=== PATIENT | female | born 1970 | race Caucasian/White ===

== ENCOUNTER 2020-01-25 08:55 | Day surgery (SDC) | payer OTHER ==
[2020-01-20 14:51] VITALS: BMI 22.6
[2020-01-25] MEDS ORDERED: PROPOFOL 20 ML ONE (10:01)
[2020-01-25 12:34] VITALS: TEMP 97.7
[2020-01-25 12:37] VITALS: BP 100/68; PULSE 55
--- NOTE | 2020-01-27 16:12 | PATH ---
Surgical Pathology Report Patient Name: [facility]. Rec. #: [id number] /Age/Gender: 1970 (Age: 49) / F Account: [id number] Location: [facility] Taken: 01/25/2020 Received: 01/25/2020 Reported: 01/27/2020 Physicians: Ketan Barraza M.D. Specimen(s) Received A: DESCENDING HOT SNARE POLYPECTOMY B: CECUM HOT SNARE POLYPECTMY C: ASCENDING COLON HOT SNARE POLYPECTOMY D: POLYP TRANSVERSE COLON BX E: SIGMOID COLON HOT SNARE POLYPECTOMY F: POLYP RECTUM BX Clinical History Family history of colon cancer Postoperative diagnosis: Colon polyps, hemorrhoids Final Diagnosis A. DESCENDING COLON, POLYP, HOT SNARE POLYPECTOMY: TUBULAR ADENOMA. B. CECUM, POLYP, HOT SNARE POLYPECTOMY: SESSILE SERRATED POLYP. C. ASCENDING COLON, POLYP, HOT SNARE POLYPECTOMY: SESSILE SERRATED POLYP. D. TRANSVERSE COLON, POLYP, BIOPSY: SESSILE SERRATED POLYP. E: SIGMOID COLON, POLYP, HOT SNARE POLYPECTOMY: TUBULAR ADENOMA. F. RECTUM, POLYP, BIOPSY: SESSILE SERRATED POLYP. Electronically Signed Lesa Garcia M.D. Gross Description A. Received in formalin, labeled "hot snare polypectomy descending" is a amato, irregular portion of soft tissue measuring 0.3 cm. in greatest dimension. The specimen is submitted in toto in one cassette. B. Received in formalin, labeled "hot snare polypectomy cecum" are 2 amato, irregular portions of soft tissue measuring 0.5 and 0.9 cm. in greatest dimension. The specimens are submitted in toto in one cassette. C. Received in formalin, labeled "hot snare polypectomy ascending colon" is a amato, polypoid portion of soft tissue measuring 0.8 cm. in greatest dimension. The specimen is submitted in toto in one cassette. D. Received in formalin, labeled "biopsy polyp transverse colon" are 2 amato, irregular portions of soft tissue measuring 0.1 and 0.3 cm. in greatest dimension. The specimens are submitted in toto in one cassette. E. Received in formalin, labeled "hot snare polypectomy sigmoid" is a amato, irregular portion of soft tissue measuring 0.5 cm. in greatest dimension. The specimen is submitted in toto in one cassette. F. Received in formalin, labeled "biopsy polyp rectum" are 2 amato, irregular portions of soft tissue averaging 0.3 cm. in greatest dimension. The specimens are submitted in toto in one cassette. 01/26/2020 [facility]01/26/2020
== END 2020-01-25 11:50 | disposition home or self-care (01) ==
LOC: FASU-ENDO 08:55
PROVIDERS: ATTEND Internal Medicine Gastroenterology
PROC: 0DBN8ZX Excision of Sigmoid Colon, Via Natural or Artificial Opening Endoscopic, Diagnostic (ICD-10-PCS; 2020-01-25)
PROC: 0DBM8ZX Excision of Descending Colon, Via Natural or Artificial Opening Endoscopic, Diagnostic (ICD-10-PCS; 2020-01-25)
PROC: 0DBH8ZX Excision of Cecum, Via Natural or Artificial Opening Endoscopic, Diagnostic (ICD-10-PCS; 2020-01-25)
PROC: 0DBP8ZX Excision of Rectum, Via Natural or Artificial Opening Endoscopic, Diagnostic (ICD-10-PCS; 2020-01-25)
PROC: 0DBL8ZX Excision of Transverse Colon, Via Natural or Artificial Opening Endoscopic, Diagnostic (ICD-10-PCS; 2020-01-25)
PROC: 3E0H8GC Introduction of Other Therapeutic Substance into Lower GI, Via Natural or Artificial Opening Endoscopic (ICD-10-PCS; 2020-01-25)
PROC: 0DBK8ZX Excision of Ascending Colon, Via Natural or Artificial Opening Endoscopic, Diagnostic (ICD-10-PCS; principal; 2020-01-25 09:58)
DX: Z12.11 Encounter for screening for malignant neoplasm of colon (principal); Z80.0 Family history of malignant neoplasm of digestive organs; D12.0 Benign neoplasm of cecum; D12.2 Benign neoplasm of ascending colon; D12.3 Benign neoplasm of transverse colon; D12.4 Benign neoplasm of descending colon; D12.5 Benign neoplasm of sigmoid colon; D12.8 Benign neoplasm of rectum; K64.8 Other hemorrhoids
CPT/HCPCS: 84703; 88305-TC